=== PATIENT | female | born 1985 | race Hispanic/Latino ===

== ENCOUNTER 2018-06-15 11:57 | Observation (INO) | payer BC ==
[2018-06-20] MEDS ORDERED: PNV1TABL77 PO (02:26)
== END 2018-06-15 14:31 | disposition home or self-care (01) ==
LOC: LDH 11:57
PROVIDERS: ADMIT Obstetrics & Gynecology; ATTEND Obstetrics & Gynecology
DX: O48.0 Post-term pregnancy (principal); Z3A.40 40 weeks gestation of pregnancy
CPT/HCPCS: 76805; 76819; G0378

== ENCOUNTER 2018-06-16 19:58 | Emergency (ER) | payer BC ==
[2018-06-16] MEDS ORDERED: ACETAMINOPHEN 325 MG TAB ONE (20:43)
[2018-06-20] MEDS ORDERED: PNV1TABL77 PO (02:26)
== END 2018-06-16 21:32 | disposition home or self-care (01) ==
LOC: EDH 19:58
DX: O9A.213 Injury, poisoning and certain other consequences of external causes complicating pregnancy, third trimester (principal); S80.02XA Contusion of left knee, initial encounter; Z3A.40 40 weeks gestation of pregnancy; Z88.0 Allergy status to penicillin; Z88.6 Allergy status to analgesic agent; W18.39XA Other fall on same level, initial encounter; Y93.89 Activity, other specified; Y92.89 Other specified places as the place of occurrence of the external cause; Y99.8 Other external cause status